=== PATIENT | female | born 1955 | race Caucasian/White ===

== ENCOUNTER 2017-01-29 08:34 | Emergency (ER) | payer OTHER, BC ==
[~2017-01-29] VITALS: Ht 157.5 cm; Wt 100.0 kg
[~2017-01-29 08:34] MED LIST: ASHW1CAP; CLON1TAB PO; FLUO40CA PO; LISI10TA3 PO; METF500T PO
[2017-01-29 08:38] VITALS: BP 145/73; PULSE 95; RESP 18; TEMP 99.1; O2SAT 96
[2017-01-29] MEDS ORDERED: LISI-519 PO (09:07)
--- NOTE | 2017-01-29 09:26 | PD ---
HPI Chief Complaint: Injury Time Seen by Provider: 09:26 Travel History International Travel<30 days: No Contact w/Intl Traveler<30days: No Traveled to known affect area: No History of Present Illness HPI 61-year-old female presents to emergency department complaining of right shoulder pain after tripping over her right foot this morning and falling and landing directly on her right shoulder. She denies hitting her head or loss of consciousness. Denies neck pain or back pain. Denies anticoagulants. Reports decreased range of motion of the shoulder. Reports tingling of her right fingers. Denies loss of sensation to the affected extremity. Denies elbow pain. Denies chest pain, shortness of breath, abdominal pain, nausea, vomiting. Took ibuprofen earlier this morning for symptom management. Medical history of hypertension, diabetes type 2 and is on Glucophage, COPD. Has no other medical complaints. No other modifying factors or associated signs and symptoms. PFSH Past Medical History Arthritis: Yes (TO POSTERIOR BACK) Cancer: No Cardiovascular Problems: Yes High Cholesterol: Yes Diabetes: Yes Patient Takes Glucophage: Yes (01/29/17 0600) Diminished Hearing: No Deep Vein Thrombosis: Yes Endocrine: Yes Genitourinary: No Hypertension: Yes Implanted Vascular Access Dvce: No Musculoskeletal: Yes Neurologic: No Psychiatric: No Reproductive: No Respiratory: Yes Immunizations Current: Yes ?: Not Menopausal: Yes : 3 Para: 2 : 1 Past Surgical History Surgical History: No Previous Surgery Section: Yes (x 2) Gynecologic Surgery: Yes (2 C SECTION) Social History Alcohol Use: No Tobacco Use: No (1 PPD) Substance Use: No Allergies-Medications (Allergen,Severity, Reaction): Coded Allergies: Levaquin (Verified Allergy, Mild, SWELLING, 09/29/16) Reported Meds & Prescriptions Reported Meds & Active Scripts Active Lortab (Hydrocodone-Acetaminophen) 5-325 Mg Tab 1-2 Tab PO Q6H PRN Ibuprofen 800 Mg Tab 800 Mg PO Q8H PRN Fluoxetine (Fluoxetine HCl) 40 Mg Cap 40 Cap PO DAILY Clonazepam 1 Mg Tab 1 Mg PO TID Metformin (Metformin HCl) 500 Mg Tab 500 Mg PO BIDPC With meals Reported Lisinopril 5 Mg Tab 5 Mg PO DAILY Review of Systems Except as stated in HPI: all other systems reviewed are Neg Physical Exam Narrative GENERAL: Well-nourished, well-developed female patient, in no acute distress SKIN: Warm and dry. HEAD: Atraumatic. Normocephalic. EYES: Pupils equal and round. No scleral icterus. No injection or drainage. ENT: Mucosa pink and moist. Airway patent. NECK: Moving freely. Active rotation greater than 45 to the left and right. No midline point tenderness on palpation of the cervical spine. Supple. Trachea midline. CARDIOVASCULAR: Regular rate and rhythm. No murmur appreciated. RESPIRATORY: No accessory muscle use. Clear to auscultation. Breath sounds equal bilaterally. GASTROINTESTINAL: Abdomen soft, non-tender, nondistended. Positive bowel sounds. No hepato-splenomegaly, or palpable masses. No guarding. MUSCULOSKELETAL: Unable to assess range of motion of the right shoulder secondary to patient guarding and pain; without erythema edema, ecchymosis; no obvious deformities; decreased auto garage mechanic strength. Right upper extremity supple and non-tense. 2+ radial pulse and sensory intact. No obvious deformities. No clubbing. No cyanosis. No edema. BACK: No midline point tenderness on the patient of the thoracic or lumbar spine. NEUROLOGICAL: Awake and alert. Oriented 3. No obvious cranial nerve deficits. Motor grossly within normal limits. Normal speech. PSYCHIATRIC: Appropriate mood and affect; insight and judgment normal. Data Data Last Documented VS Vital Signs Date Time Temp Pulse Resp B/P Pulse Ox O2 Delivery O2 Flow Rate FiO2 01/29/17 08:38 99.1 95 18 145/73 96 Orders Shoulder, Limited(2vws) (01/29/17 08:53) Acetamin-Hydrocod 325-7.5 Mg (Hortense 7.5 (01/29/17 09:30) Ondansetron Odt (Zofran Odt) (01/29/17 09:30) Ice/Cold Pack (01/29/17 09:40) Ct Shoulder W/O Contrast (01/29/17 ) Sling And Swathe (01/29/17 ) [facility] Medical Decision Making Medical Screen Exam Complete: Yes Emergency Medical Condition: Yes Medical Record Reviewed: Yes Differential Diagnosis Fall, Shoulder fracture, shoulder dislocation, shoulder contusion Narrative Course 61-year-old female with right shoulder injury after mechanical fall today. Denies hitting her head or loss of consciousness. The patient admits to hitting their head, but denies loss of consciousness. Denies nausea, vomiting. On physical exam the patient is without raccoon eyes, aranda signs, rhinorrhea , or hemotympanum. I do not suspect open or depressed skull fracture, and the patient has no signs of basilar skull fracture. [place] CT Head Injury Rule suggests a head CT is not necessary for this patient and clears the patient for head injury without imaging. Denies neck pain. [place] C-Spine Rule suggests the C-Spine can be cleared clinically of fracture, and imaging is not required. There is no midline point tenderness on palpation of the cervical spine. The patient is able to actively rotate the neck 45 left and right. The patient is sitting up in bed at 90. The patient is ambulatory. Right shoulder x-ray ordered. Lortab ordered. 39: Right shoulder x-ray concludes acute fracture superimposed on chronic degenerative changes and suggests a CT scan may be of help. Call placed to orthopedic surgeon microbiology quality control technician. [phone]: I spoke with Dr. Eubanks, orthopedic surgeon, and he recommended CT of the right shoulder, sling and swath and for the patient to follow-up in his office. CT and splint ordered. Lortab and ibuprofen prescribed for home. Strict patient to follow-up with Dr. Eubanks or orthopedic surgeon of choice. Instructed patient to follow up with primary care provider. Patient verbalizes understanding and agreement with treatment plan. Patient is medically cleared and stable for discharge. Discussed reasons to return to the emergency department. Patient agrees with treatment plan. The patients vital signs are stable and the patient is stable for outpatient follow-up and treatment. Patient discharged home, stable and in no acute distress. Diagnosis Primary Impression: Shoulder fracture, right Qualified Code: S42.91XA - Shoulder fracture, right, closed, initial encounter Referrals: Michael Eubanks Jr., MD Orthopaedic Surgeon Primary Care Physician Patient Instructions: General Instructions Departure Forms: Tests/Procedures, Work Release Special Instructions: Unable to return to work until cleared by orthopedic surgeon Additional Instructions: Tylenol or ibuprofen as needed and as directed to reduce pain and inflammation Rest, ice, and compress extremity to decrease pain and inflammation Arm sling for support; splint for support,: Do not remove splint until cleared by the orthopedic surgeon Avoid aggravating activity; increase activity as tolerated Follow-up with primary care provider Follow-up with orthopedic surgeon; Dr. Eubanks is our on-call orthopedic and his information is provided in your discharge instructions Return to the emergency department immediately with worsening symptoms Med/Other Pt SpecificInfo: Prescription(s) given Scripts Hydrocodone-Acetaminophen (Lortab)5-325 Mg Tab1-2 Tab PO Q6H PRN (PAIN GREATER THAN 5) #20 TAB Ref 0 Prov:Cosme Acosta MD 01/29/17 Ibuprofen 800 Mg [id number] Mg PO Q8H PRN (PAIN LESS THAN 5 ON SCALE) #30 TAB Ref 0 Prov:Zahraa Ross 01/29/17 Disposition: 01 DISCHARGE HOME Condition: Stable Zahraa Ross Jan 29, 2017 09:26
[2017-01-29] MEDS ORDERED: ACETAMINOPHEN/HYDROcodone 325 MG/7.5 MG TAB PO ONE (09:30)
[2017-01-29] MEDS ORDERED: ONDANSETRON ODT 4 MG TAB PO ONE (09:30)
--- NOTE | 2017-01-29 09:35 | RADRPT ---
EXAM DATE/TIME: 01/29/2017 09:15 [facility] COMPARISON: No previous studies available for comparison. INDICATIONS : Right shoulder pain post fall today MEDICAL HISTORY : None. SURGICAL HISTORY : None. ENCOUNTER: Initial ACUITY: 1 day PAIN SCORE: 10/10 LOCATION: Right entire shoulder FINDINGS: There are degenerative changes about the shoulder with acute fracture of the surgical neck. Degenera tive changes are seen at the glenoid and AC joint. CONCLUSION: 1. Acute fracture superimposed on chronic degenerative changes. 2. CT scan may be of help. Jonathan Mojica MD FACR on January 29, 2017 at 9:30 Board Certified Radiologist. This report was verified electronically.
[2017-01-29] MEDS ORDERED: IBUP800T23 PO (10:08)
[2017-01-29] MEDS ORDERED: HYDR-3533 PO (10:09)
[2017-01-29 10:52] VITALS: RESP 17
--- NOTE | 2017-01-29 10:58 | RADRPT ---
EXAM DATE/TIME: 01/29/2017 10:14 [facility] COMPARISON: No previous studies available for comparison. INDICATIONS : Right arm pain after fall. RADIATION DOSE: 33.09 CTDIvol (mGy) ; Patient body habitus MEDICAL HISTORY : Hypertension. Cardiovascular disease SURGICAL HISTORY : None. ENCOUNTER: Initial ACUITY: 1 day PAIN SCALE: 8/10 LOCATION: Right shoulder TECHNIQUE: Volumetric scanning of the shoulder was performed. Using automated exposure control and adjustment o f the mA and/or kV according to patient size, radiation dose was kept as low as reasonably achievable to obtain optimal diagnostic quality images. DICOM format image data is available electronically f or review and comparison. FINDINGS: Again seen is the comminuted fracture of the humerus involving the surgical neck with dense capsular calcifications. The glenoid and acromial artifact. CONCLUSION: Humeral fracture as described above. Jonathan Mojica MD FACR on January 29, 2017 at 10:56 Board Certified Radiologist. This report was verified electronically.
[2017-02-08] MEDS ORDERED: FLUO10TA PO (10:58)
== END 2017-01-29 11:13 | disposition home or self-care (01) ==
LOC: NEPK 08:34
DX: S42.211A Unspecified displaced fracture of surgical neck of right humerus, initial encounter for closed fracture (principal); R20.2 Paresthesia of skin; I10 Essential (primary) hypertension; E11.9 Type 2 diabetes mellitus without complications; J44.9 Chronic obstructive pulmonary disease, unspecified; E78.00 Pure hypercholesterolemia, unspecified; F17.200 Nicotine dependence, unspecified, uncomplicated; W01.0XXA Fall on same level from slipping, tripping and stumbling without subsequent striking against object, initial encounter; Z86.718 Personal history of other venous thrombosis and embolism
CPT/HCPCS: 29240; 73030; 73200